=== PATIENT | male | born 1995 | race African-American/Black ===

== ENCOUNTER 2022-12-01 09:45 | Emergency (ER) | payer BC ==
[~2022-12-01] VITALS: Ht 160 cm; Wt 68.7 kg
[2022-12-01 10:11] VITALS: BP 145/87
[2022-12-01 10:42] LABS: Urine Bacteria NONE SEEN /hpf (None Seen); Urine Blood Negative /uL (Negative); Urine Mucus FEW (None Seen); Urine Specific Gravity 1.026 (1.001-1.035); Urine WBC 30 /hpf (0 - 3)
[2022-12-01] MEDS ORDERED: PHEN200T16 PO (10:52)
== END 2022-12-01 10:54 | disposition home or self-care (01) ==
LOC: ER 09:45
DX: N39.0 Urinary tract infection, site not specified (principal)
CPT/HCPCS: 81001